=== PATIENT | male | born 1970 | race Caucasian/White ===

== ENCOUNTER 2022-10-08 08:00 | Outpatient (NON) | payer OTHER, SELFPAY | END 2022-10-08 08:01 | disposition home or self-care (01) | LOC: ANHLAB 10-09 13:00 | PROVIDERS: Visit Provider Nurse Practitioner | DX: D17.22 Benign lipomatous neoplasm of skin and subcutaneous tissue of left arm (principal); D17.21 Benign lipomatous neoplasm of skin and subcutaneous tissue of right arm | CPT/HCPCS: 88304 ==